=== PATIENT | male | born 1990 | race African-American/Black ===

== ENCOUNTER 2022-12-12 14:29 | Outpatient (CLI) | payer OTHER | END 2022-12-12 14:30 | disposition home or self-care (01) | LOC: CSHCP 14:29 | PROVIDERS: ATTEND Chiropractor | DX: J40 Bronchitis, not specified as acute or chronic (principal); J43.9 Emphysema, unspecified; J44.9 Chronic obstructive pulmonary disease, unspecified; R09.1 Pleurisy | CPT/HCPCS: 71046; 94060; 94760 ==